=== PATIENT | female | born 1965 | race Caucasian/White ===

== ENCOUNTER 2023-05-26 10:49 | Outpatient (CLI) | payer MEDICAID, SELFPAY | END 2023-05-26 10:50 | disposition home or self-care (01) | PROVIDERS: PCP Physician Assistant Medical; Visit Provider Physician Assistant Medical | DX: Z00.00 Encounter for general adult medical examination without abnormal findings (principal); R79.89 Other specified abnormal findings of blood chemistry; D68.51 Activated protein C resistance; Z13.6 Encounter for screening for cardiovascular disorders | CPT/HCPCS: 80053; 80061; 86703; 86803 ==

== ENCOUNTER 2023-06-23 08:05 | Outpatient (CLI) | payer MEDICAID, SELFPAY ==
--- NOTE | 2023-06-23 08:15 | CRLHL7_ITS ---
For Patients: As a result of the Century Cures Act, medical imaging exams and procedure reports are released immediately into your electronic medical record. You may view this report before your referring provider. If you have questions, please contact your health care provider. BILATERAL SCREENING MAMMOGRAM WITH COMPUTER-AIDED DETECTION AND TOMOSYNTHESIS TECHNIQUE: CC and MLO views were obtained. These mammographic images have been obtained using full-field digital technique. These mammographic images were interpreted with the benefit of computer-aided detection. Breast Tomosynthesis was used in this interpretation. COMPARISON FILM: No priors available. FINDINGS: There are scattered areas of fibroglandular density IMPRESSION: There is no radiographic evidence for malignancy. ASSESSMENT: BI-RADS Category 1: Negative RECOMMENDATION: Routine screening mammogram in 1 year. A lay language report of this examination will be provided to the patient. Robert Godinez M.D. Diagnostic Radiologist [email or web address] LARRY/Dictated by: Robert Godinez MD @ 07/08/2023 10:14:00 AM (Electronically Signed)
== END 2023-06-23 08:06 | disposition home or self-care (01) ==
LOC: MAMMO 08:06
PROVIDERS: PCP Physician Assistant Medical; Visit Provider Physician Assistant Medical
DX: Z12.31 Encounter for screening mammogram for malignant neoplasm of breast (principal)
CPT/HCPCS: 77063; 77067

== ENCOUNTER 2023-08-01 12:11 | Outpatient (CLI) | payer MEDICAID, SELFPAY ==
--- NOTE | 2023-08-01 12:15 | CRLHL7_ITS ---
For Patients: As a result of the Century Cures Act, medical imaging exams and procedure reports are released immediately into your electronic medical record. You may view this report before your referring provider. If you have questions, please contact your health care provider. INDICATION: ABNORMAL PAP COMPARISON: none TECHNIQUE: 2D berry scale and color Doppler images were acquired of the pelvis using a transabdominal and transvaginal approach. FINDINGS: Sonographic images demonstrate a normal size and smooth outer contour of the uterus. Uterus measures 8.6 cm in length by 4.0 cm in AP diameter by 4.4 cm in transverse dimension. The myometrium has a heterogeneous echotexture. The endometrial lining measures 3 mm in composite thickness. Small amount of endocervical fluid noted. The ovaries are not visualized. There are no suspicious fluid collections within the cul-de-sac. IMPRESSION: Heterogeneous myometrium with a few associated calcifications. No defined leiomyoma. Endometrium measures 3 millimeters. A small amount of endocervical fluid noted. Dictated by Robert Godinez MD @ 08/01/2023 1:06:57 PM (Electronically Signed)
== END 2023-08-01 12:12 | disposition home or self-care (01) ==
LOC: US 12:12
PROVIDERS: PCP Physician Assistant Medical; Visit Provider Obstetrics & Gynecology
DX: R87.619 Unspecified abnormal cytological findings in specimens from cervix uteri (principal)
CPT/HCPCS: 76830; 76856

== ENCOUNTER 2023-08-15 10:11 | Outpatient (CLI) | payer MEDICAID, SELFPAY ==
--- OUTSIDE RECORDS SUMMARY | 2023-08-15 10:16 | XMS_ITS | Patient Health Record ---
Author Name Unknown Organization [facility] Address [address] [place], [place] [id number] Care Team Providers Care Machine Lacer Name Role Phone Naida Hoffmann Primary Care Provider [phone] ALLERGIES Allergen (clinical drug ingredient) Drug/Non Drug Allergy documented on EMR Reaction Allergy Type Onset Date Status terbutaline Terbutaline Unknown Drug Allergy Act leyla REASON FOR REFERRAL No Information MEDICATIONS Medication SIG (Take, Route, Frequency, Duration) Notes Start Date End Date Status Cetirizine HCl 10 MG 1 tablet Orally Onc e a day Active Ibuprofen 200 MG 1 tablet with food o r milk as needed Orally Three times a day Active Fluticasone Propionate 50 MCG/ACT 1 spray in each nostril Nasally Once a day Active oxyBUTYnin Chloride 5 MG 1 tablet Orally Once a day for 90 days 08/07/2023 Active SOCIAL HISTORY Tobacco Use: Social History Observation Description Date Details (start date - stop date) Never Smoker NA - NA Sex Assigned At : Social History Observation Description Sex Assigned At Unknown Tobacco Use/Smoking Question Answer Notes Are you a nonsmoker PROBLEMS Problem Type ICD Code Onset Dates Problem Status W/U Status Risk SNOMED Code Notes Problem Vaginal atrophy (N95.2) Active confirmed 908703239 VITAL SIGNS Blood pressure diastolic 70 mm Hg 08/07/2023 Height 68 in 08/07/2023 Blood pressure systolic 110 mm Hg 08/07/2023 Weight 229.6 lbs 08/07/2023 BMI 34.91 kg/m2 08/07/2023 Encounters Encounter Location Date Provider Diagnosis [address] [place] [address] 08/07/2023 Naida Hoffmann Atypical glandular cells of undetermined significance (CHIQUIS) on cervical Pap smear R87.619 ; Urinary urgency R39.15 and Vaginal atrophy N95.2 [facility] [address] [place] [address] [address] [place] [address] 08/01/2023 Naida Hoffmann [facility] [address] [place], [place] [id number] 08/04/2023 Naida Hoffmann [facility] [address] [place], [place] [id number] 08/07/2023 Naida Hoffmann ASSESSMENTS Encounter Date Diagnosis Assessment Notes Treatment Notes Treatment Clinical Notes 08/07/2023 Urinary urgency (ICD-10 - R39.15) 08/07/2023 Atypical glandular cells of undetermined significance (CHIQUIS) on cervical Pap smear (ICD-10 - R87.619) await endometrial biopsy. It likely will be insufficient cells so I recommend repeat Pap in 4-6 months. We can follow-up on her oxybutynin at the same time. 08/07/2023 Vaginal atrophy (ICD-10 - N95.2) patient was given a prescription for local estrogen cream. Reviewed pros cons risks benefits. 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 I am fine with local application of estrogen. She is not sexually active at this time, discussed potential for dilators sure that occur. PLAN OF TREATMENT Next Appt Details Provider Name:Naida Hoffmann, 0 02/06/2024 10:15:00 AM, [address] [facility], [address], [place], [address], Insurance Providers Payer Name Payer Address Payer Phone Subscriber Number Group Number Insured Name Patient Relationship to Insured Coverage Start Date Coverage End Date [employer] 2021 [place] (CLIENT bill) [address] [facility] [id number] Amie Gaston Self - patient is the insured 3 [facility] Medicaid (Ins. 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
--- NOTE | 2023-08-15 11:16 | W.ANESCHARGE ---
Anesthesia Charges Start Date/Time Anesthesia Start Date: 08/15/23 Anesthesia Start Time: 10:55 Stop Date/Time Anesthesia Stop Date: 08/15/23 Anesthesia Stop Time: 11:15
== END 2023-08-15 10:12 | disposition home or self-care (01) ==
LOC: OP CLINIC 10:13
PROVIDERS: PCP Physician Assistant Medical; Visit Provider Internal Medicine
DX: Z12.11 Encounter for screening for malignant neoplasm of colon (principal)
CPT/HCPCS: 00812; 45378; J2704